=== PATIENT | female | born 1980 | race Caucasian/White ===

== ENCOUNTER 2017-12-27 16:38 | Emergency (ER) | payer BC, OTHER ==
[2017-12-27 17:34] LABS: #Basophils 0.1 thou/uL (0.0-0.2); #Eosinphils 0.1 thou/uL (0.0-0.7); #Lymphocytes 1.4 thou/uL (1.20-3.40); #Monocytes 0.5 thou/uL (0.11-0.59); #Neutrophils 3.6 thou/uL (1.40-6.50); %Basophils 0.9 % (0.0-1.0); %Eosinophils 1.7 % (0.0-10.0); %Lymphocytes 25.2 % (21.0-51.0); %Monocytes 9.1 % (0.0-10.0); Hemoglobin 12.4 g/dL (12.0-16.0); Mean Corpuscular HGB CONC 33.5 g/dL (32.0-36.0); Mean Corpuscular Hemoglobin 28.2 pg (27.0-31.0); Mean Corpuscular Volume 84.2 fL (78.0-98.0); Mean Platelet Volume 7.5 fL (7.4-10.4); Platelet Count 211 thou/uL (130-400); RBC Distribution Width 16.5 % (11.5-14.5); Red Blood Cell (RBC) Count 4.41 mill/uL (4.20-5.40); White Blood Cell (WBC) Count 5.7 thou/uL (4.8-10.8)
[2017-12-27 17:40] LABS: BHCG - Serum Negative (NEGATIVE); Pregs Control Background? CLEAR/WHITE (CLR/WHITE); Pregs Control Bar Appear? YES (CONTROL BAR)
[2017-12-27 17:52] LABS: ALT (SGPT) 16 U/L (8-55); AST (SGOT) 23 U/L (5-34); Albumin 4.4 g/dL (3.5-5.0); Alcohol Less than 10 mg/dL (Less than 10); Alkaline Phosphatase 87 U/L (40-150); Anion Gap 14 mmol/L (10-20); BUN (Urea Nitrogen) 13 mg/dL (7.0-18.7); Bilirubin, Total 0.3 mg/dL (0.2-1.2); CK (CPK) 57 U/L (29-168); Calc. Creatinine Clearance 0 mL/min (70-130); Calcium 9.1 mg/dL (7.8-10.44); Carbon Dioxide 24 mmol/L (22-29); Chloride 103 mmol/L (98-107); Estimated GFR-MDRD 89; Glucose 85 mg/dL (70-105); Potassium 3.8 mmol/L (3.5-5.1); Protein, Total 7.4 g/dL (6.0-8.3); Sodium 137 mmol/L (136-145)
[2017-12-27 17:57] LABS: CKMB 0.8 ng/mL (0-6.6); Troponin I Less than 0.010 ng/mL (< 0.028)
--- NOTE | 2017-12-27 18:25 | CT ---
NONCONTRAST HEAD CT 12/27/17 HISTORY: Altered mental status. COMPARISON: 03/27/16. FINDINGS: No parenchymal hemorrhage. No extra-axial hematoma. No midline shift. Basilar cisterns are patent. Br ain volume, age appropriate. Cortical hobbs-white matter differentiation preserved. Ventricles and sul ci are patent and symmetric. Adequate aeration of the sinuses and mastoid air cells. Intact calvarium. IMPRESSION: No acute intracranial process. POS: [facility]
[2017-12-27 18:59] LABS: Amphetamine Not Detected (NotDetected); Barbiturates Screen Not Detected (NotDetected); Benzodiazepine Screen Not Detected (NotDetected); Cocaine Metabolite Screen Not Detected (NotDetected); Medtox Control Line Valid? VALID (VALID); Medtox Reader # READER 1; Methadone Not Detected (NotDetected); Methamphetamine Not Detected (NotDetected); Opiate Screen Not Detected (NotDetected); Oxycodone Screen Not Detected (NotDetected); Phencyclidine (PCP) Not Detected (NotDetected); THC/Cannabinoid Screen Not Detected (NotDetected); Tricyclic Screen Not Detected (NotDetected)
--- NOTE | 2017-12-31 11:57 | EKG ---
Test Reason : SEIZURES Blood Pressure : / mmHG Vent. Rate : 072 BPM Atrial Rate : 072 BPM P-R Int : 126 ms QRS Dur : 086 ms QT Int : 388 ms P-R-T Axes : 038 034 024 degrees QTc Int : 424 ms Normal sinus rhythm Possible Left atrial enlargement Borderline ECG Confirmed by EVA DIXON ([id number]), movie editor LITZY HERNANDEZ ([id number]) on 12/31/2017 11:56:35 AM Referred By: Confirmed By:EVA DIXON
== END 2017-12-27 19:00 | disposition home or self-care (01) ==
LOC: ERS 16:38
DX: R40.4 Transient alteration of awareness (principal); I10 Essential (primary) hypertension; F32.9 Major depressive disorder, single episode, unspecified; F41.9 Anxiety disorder, unspecified; F17.210 Nicotine dependence, cigarettes, uncomplicated; Z79.899 Other long term (current) drug therapy
CPT/HCPCS: 36415; 70450; 80053; 80306; 80307; 82553; 84443; 84484; 84703; 85025; 93005

== ENCOUNTER 2018-11-28 14:24 | Outpatient (CLI) | payer BC, OTHER ==
--- NOTE | 2018-11-28 15:24 | MMO ---
Bilateral MAMMO Bilat Diag [facility]. CLINICAL HISTORY: Patient is 37 years old and is seen for diagnostic exam. The patient has no family history of breast cancer. The patient has no personal history of cancer. The patient has a history of left Lumpectomy in 1998 - benign. VIEWS: The views performed were: bilateral craniocaudal with tomosynthesis; bilateral mediolateral oblique with tomosynthesis; and bilateral mediolateral with tomosynthesis. FILMS COMPARED: The present examination has been compared to a prior imaging study performed at [facility] on 11/28/2018. MAMMOGRAM FINDINGS: The breasts are heterogeneously dense, which could obscure a lesion on mammography. There are no suspicious masses, suspicious calcifications, or new areas of architectural distortion. IMPRESSION: AGE APPROPRIATE SCREENING BASED ON RISK FACTORS IS RECOMMENDED. THE RESULTS OF THIS EXAM WERE SENT TO THE PATIENT. ACR BI-RADS Category 2 - Benign finding MAMMOGRAPHY NOTE: 1. A negative mammogram report should not delay a biopsy if a dominant of clinically suspicious mass is present. 2. Approximately 10% to 15% of breast cancers are not detected by mammography. 3. Adenosis and dense breasts may obscure an underlying neoplasm.
--- NOTE | 2018-11-28 15:59 | ULT ---
LEFT BREAST ULTRASOUND: 11/28/18 HISTORY: 38-year-old female with palpable abnormality at the 6 o'clock position of the left breast. FINDINGS: Correlation is made with mammogram of same date. Sonographic evaluation of the area of palpable concern at the 6 o'clock position of the left breast d emonstrates no abnormality. IMPRESSION: BIRADS 2: Benign Finding(s) Routine annual screening mammography (for women over age 40). Return to age appropriate screening based on risk factors. POS: OFF
== END 2018-11-28 14:25 | disposition home or self-care (01) ==
LOC: BICMAMMO 14:24
PROVIDERS: ATTEND Family Medicine
DX: N63.20 Unspecified lump in the left breast, unspecified quadrant (principal); Z91.89 Other specified personal risk factors, not elsewhere classified
CPT/HCPCS: 77066; G0279

== ENCOUNTER 2021-01-19 07:42 | Outpatient (CLI) | payer BC | END 2021-01-19 07:43 | disposition home or self-care (01) | LOC: BICULT 07:42 | PROVIDERS: ATTEND Obstetrics & Gynecology | DX: N93.9 Abnormal uterine and vaginal bleeding, unspecified (principal) | CPT/HCPCS: 76856 ==

== ENCOUNTER 2022-12-14 08:06 | Outpatient (CLI) | payer BC | END 2022-12-14 08:07 | disposition home or self-care (01) | LOC: LABBT 08:06 | PROVIDERS: ATTEND Specialist | DX: Z01.818 Encounter for other preprocedural examination (principal); J34.3 Hypertrophy of nasal turbinates; J32.0 Chronic maxillary sinusitis; J32.1 Chronic frontal sinusitis; J32.3 Chronic sphenoidal sinusitis; J32.2 Chronic ethmoidal sinusitis | CPT/HCPCS: 85014; 93005; 93010 ==

== ENCOUNTER 2022-12-16 09:46 | Day surgery (SDC) | payer BC ==
[2022-12-14 08:41] VITALS: BMI 24.4
[2022-12-16] MEDS ORDERED: Oxymetazoline HCl 0.05% (30 ML BOT) ONE ×2 (10:25→10:38)
[2022-12-16] MEDS ORDERED: fentaNYL PF 100 MCG/2 ML SYRINGE ONE (10:32)
[2022-12-16] MEDS ORDERED: Midazolam HCl 2 mg/2 ml Vial ONE (10:33)
[2022-12-16] MEDS ORDERED: HYDROmorphone 0.5 MG/0.5 ML SYRINGE ONE ×3 (10:33→13:08)
[2022-12-16] MEDS ORDERED: EPINEPHrine 1 MG/ML AMP ONE (10:38)
[2022-12-16] MEDS ORDERED: Lidocaine 1% (PF) 30 ML VIAL ONE (10:38)
[2022-12-16] MEDS ORDERED: Dexamethasone 20 MG/5 ML VIAL ONE (10:48)
[2022-12-16] MEDS ORDERED: PROPOFOL 200 MG/20 ML VIAL ONE (10:48)
[2022-12-16] MEDS ORDERED: Rocuronium Bromide 10 MG/ML (10ML VIAL) ONE (10:48)
[2022-12-16] MEDS ORDERED: Lidocaine 1% PF 5 ML VIAL ONE (10:48)
[2022-12-16] MEDS ORDERED: Ondansetron PF 4 MG/2 ML Vial ONE (10:48)
[2022-12-16] MEDS ORDERED: fentaNYL 50 mcg/mL 1 mL Vial ONE ×2 (12:23→12:49)
[2022-12-16] MEDS ORDERED: HYDROcodone/Acetaminophen 5/325 mg Tablet ONE (13:27)
== END 2022-12-16 14:15 | disposition home or self-care (01) ==
LOC: SDC 09:46
PROVIDERS: ATTEND Specialist
PROC: 09TQ8ZZ Resection of Right Maxillary Sinus, Via Natural or Artificial Opening Endoscopic (ICD-10-PCS; principal; 2022-12-16)
PROC: 09TX8ZZ Resection of Left Sphenoid Sinus, Via Natural or Artificial Opening Endoscopic (ICD-10-PCS; principal; 2022-12-16)
PROC: 09TL8ZZ Resection of Nasal Turbinate, Via Natural or Artificial Opening Endoscopic (ICD-10-PCS; principal; 2022-12-16)
PROC: 09TR8ZZ Resection of Left Maxillary Sinus, Via Natural or Artificial Opening Endoscopic (ICD-10-PCS; principal; 2022-12-16)
PROC: 09TV8ZZ Resection of Left Ethmoid Sinus, Via Natural or Artificial Opening Endoscopic (ICD-10-PCS; principal; 2022-12-16)
PROC: 09TW8ZZ Resection of Right Sphenoid Sinus, Via Natural or Artificial Opening Endoscopic (ICD-10-PCS; principal; 2022-12-16)
PROC: 09TS8ZZ Resection of Right Frontal Sinus, Via Natural or Artificial Opening Endoscopic (ICD-10-PCS; principal; 2022-12-16)
PROC: 09TU8ZZ Resection of Right Ethmoid Sinus, Via Natural or Artificial Opening Endoscopic (ICD-10-PCS; principal; 2022-12-16)
PROC: 09TT8ZZ Resection of Left Frontal Sinus, Via Natural or Artificial Opening Endoscopic (ICD-10-PCS; principal; 2022-12-16)
DX: J34.3 Hypertrophy of nasal turbinates (principal); J32.0 Chronic maxillary sinusitis; J32.1 Chronic frontal sinusitis; J32.2 Chronic ethmoidal sinusitis; J32.3 Chronic sphenoidal sinusitis; J32.4 Chronic pansinusitis; Z79.899 Other long term (current) drug therapy
CPT/HCPCS: J0171; J1100; J1170; J2001; J2250; J2405; J2704; J3010

== ENCOUNTER 2022-12-24 21:51 | Inpatient (IN) | payer BC ==
[2022-12-24] MEDS ORDERED: Propranolol HCl 20 MG TAB PO PRN (23:12)
[2022-12-24] MEDS ORDERED: Albuterol 200 PUFF (6.7GM INHALER) INH PRN (23:12)
[2022-12-24] MEDS ORDERED: Ondansetron ODT 4 MG TAB PO PRN (23:15)
[2022-12-24] MEDS ORDERED: Acetaminophen 325 MG TAB PO PRN (23:15)
[2022-12-24] MEDS ORDERED: Senokot S 8.6-50 MG TAB PO PRN (23:15)
[2022-12-25 00:17] VITALS: BMI 24.4
[2022-12-25] MEDS ORDERED: Benzonatate 100 MG CAP PO PRN (00:29)
[2022-12-25] MEDS ORDERED: GUAIFENESIN SF SOLN 200 MG/10 ML UDCUP PO PRN (00:29)
[2022-12-25] MEDS ORDERED: traZODone HCl 50 MG TAB PO SCH ×2 (01:30→21:00)
[2022-12-25 04:26] LABS: #Eosinphils 0.3 thou/uL (0.0-0.7); #Monocytes 0.6 thou/uL (0.11-0.59); #Neutrophils 3.1 thou/uL (1.40-6.50); %Basophils 0.3 % (0.0-1.0); %Eosinophils 4.1 % (0.0-10.0); %Lymphocytes 35.7 % (21.0-51.0); %Monocytes 9.6 % (0.0-10.0); %Neutrophils 49.3 % (42.0-75.0); Hemoglobin 11.4 g/dL (12.0-16.0); Mean Corpuscular HGB CONC 33.3 g/dL (32.0-36.0); Mean Corpuscular Hemoglobin 35.8 pg (27.0-31.0); Mean Corpuscular Volume 107.5 fl (78.0-98.0); Mean Platelet Volume 9.6 fL (7.4-10.4); Platelet Count 161 10x3/uL (130-400); RBC Distribution Width 12.8 % (11.5-14.5); Red Blood Cell (RBC) Count 3.18 mill/uL (4.20-5.40); White Blood Cell (WBC) Count 6.3 10x3/uL (4.8-10.8)
[2022-12-25 04:51] LABS: Anion Gap 15 mmol/L (10-20); BUN (Urea Nitrogen) 7 mg/dL (7.0-18.7); Calc. Creatinine Clearance 136 mL/min (70-130); Carbon Dioxide 21 mmol/L (22-29); Chloride 106 mmol/L (98-107); Estimated GFR 111; Glucose 117 mg/dL (70-105); Potassium 3.8 mmol/L (3.5-5.1); Sodium 138 mmol/L (136-145)
[2022-12-25] MEDS ORDERED: Ferrous Sulfate 325 MG TAB PO SCH (08:00)
[2022-12-25] MEDS ORDERED: Losartan 25 MG TAB PO SCH (09:00)
[2022-12-25] MEDS ORDERED: Bupropion 150 MG XL TAB PO SCH (09:00)
[2022-12-25] MEDS ORDERED: Sertraline 100 MG TAB PO SCH (09:00)
[2022-12-25] MEDS ORDERED: Famotidine 20 MG TAB PO SCH (09:00)
[2022-12-25 09:09] LABS: Magnesium 1.7 mg/dL (1.6-2.6)
[2022-12-25 16:32] VITALS: BP 137/77; TEMP 98
[2022-12-25 17:51] LABS: Troponin I Less than 0.010 ng/mL (< 0.028)
[2022-12-25] MEDS ORDERED: Cyanocobalamin (Vitamin B-12) 1,000 MCG TAB PO SCH (21:00)
[2022-12-25] MEDS ORDERED: Multivit, Therapeutic 1 TAB PO SCH (21:00)
[2022-12-25] MEDS ORDERED: Folic Acid 1 MG TAB PO SCH (21:00)
== END 2022-12-25 18:08 | disposition home or self-care (01) | DRG 176 ==
LOC: 2NO 23:09 → OBSVTOIN 23:21
PROVIDERS: ADMIT Student in an Organized Health Care Education/Training Program; ATTEND Internal Medicine
DX: I26.99 Other pulmonary embolism without acute cor pulmonale (principal); I10 Essential (primary) hypertension; J45.909 Unspecified asthma, uncomplicated; F32.A Depression, unspecified; F41.9 Anxiety disorder, unspecified; D53.9 Nutritional anemia, unspecified; Z79.01 Long term (current) use of anticoagulants; Z79.899 Other long term (current) drug therapy; Z98.890 Other specified postprocedural states
CPT/HCPCS: 36415; 80048; 83735; 83880; 84484; 85025; 93970; J1650

== ENCOUNTER 2023-04-20 13:50 | Outpatient (CLI) | payer BC | END 2023-04-20 13:51 | disposition home or self-care (01) | LOC: RAD 13:50 | PROVIDERS: ATTEND Internal Medicine Critical Care Medicine | DX: R06.00 Dyspnea, unspecified (principal) | CPT/HCPCS: 36415; 71046; 82565; 83090; 85300; 85303; 85305; 85307; 85379; 85598; 85610; 85730; 86147 ==